=== PATIENT | male | born 1975 | race Hispanic/Latino ===

== ENCOUNTER 2017-03-27 16:49 | Emergency (ER) | payer MEDICAID ==
[~2017-03-27] VITALS: Ht 175.3 cm; Wt 118.8 kg
== END 2017-03-27 19:10 | disposition home or self-care (01) ==
LOC: ED 16:49
DX: L03.116 Cellulitis of left lower limb (principal); I10 Essential (primary) hypertension
CPT/HCPCS: 80053; 85025; 96365; 99283; J3490

== ENCOUNTER 2017-07-12 13:41 | Emergency (ER) | payer MEDICAID ==
[~2017-07-12] VITALS: Ht 175.3 cm; Wt 120.7 kg
[2017-07-12] MEDS ORDERED: METHYLPREDNISOLO4 M1 PO (14:01)
[2017-07-12] MEDS ORDERED: AUGMENTIN 875-1 EACH PO (14:01)
[2017-07-12] MEDS ORDERED: TESSALON PERLE100 MG PO (14:01)
== END 2017-07-12 14:15 | disposition home or self-care (01) ==
LOC: ED 13:41
DX: J40 Bronchitis, not specified as acute or chronic (principal); I10 Essential (primary) hypertension; Z87.891 Personal history of nicotine dependence
CPT/HCPCS: 99283

== ENCOUNTER 2017-08-18 15:27 | Emergency (ER) | payer OTHER, MEDICAID ==
[~2017-08-18] VITALS: Ht 175.3 cm; Wt 121.6 kg
[~2017-08-18 15:27] MED LIST: AUGMENTIN 875-1 EACH PO; METHYLPREDNISOLO4 M1 PO; TESSALON PERLE100 MG PO
[2017-08-18] MEDS ORDERED: ZITHROMAX250 MG PO (17:32)
[2017-08-18] MEDS ORDERED: AMBIEN5 MG PO (17:32)
--- NOTE | 2017-08-18 18:05 | EKG ---
[facility] [address] [place] [address] Signed Sinus tachycardia Otherwise normal ECG No previous ECGs available Confirmed by SAIMA WHITTAKER MD ([id number]) on 08/18/2017 6:05:37 PM Electronically Signed By: SAIMA WHITTAKER MD 08/18/17 1805 PATIENT NAME: KIRSTIN DAMON Electrocardiogram DATE OF : 77 PHYSICIAN: SAIMA WHITTAKER MD REPORT #: [id number] REPORT IS CONFIDENTIAL AND NOT TO BE RELEASED WITHOUT AUTHORIZATION
== END 2017-08-18 17:51 | disposition home or self-care (01) ==
LOC: ED 15:27
DX: J06.9 Acute upper respiratory infection, unspecified (principal); R07.9 Chest pain, unspecified; G47.00 Insomnia, unspecified; I10 Essential (primary) hypertension; Z87.891 Personal history of nicotine dependence; Z79.899 Other long term (current) drug therapy
CPT/HCPCS: 71010; 80053; 83605; 84484; 85025; 93005; 93010; 96360; 99284; J7030

== ENCOUNTER 2019-09-08 14:41 | Emergency (ER) | payer OTHER ==
[~2019-09-08] VITALS: Ht 175.3 cm; Wt 121.6 kg
[~2019-09-08 14:41] MED LIST changes: +AMBIEN5 MG PO; +ZITHROMAX250 MG PO
--- OUTSIDE RECORDS SUMMARY | 2019-09-08 14:44 | XMS ---
PreManage Notification: KIRSTIN DAMON Security Swedish Masseuse Events No recent Security Events currently on file CRITERIA MET - Group Notification CARE PROVIDERS There are no care providers on record at this time. Jorge has no Care Guidelines for this patient. Dom VISIT COUNT (12 MO.) 2 KEVIN Alejandra TOTAL 2 NOTE: Visits indicate total known visits. ED/C VISIT TRACKING (12 MO.) 09/08/2019 14:42 [facility] [place] TYPE: Emergency COMPLAINT: - L EYE IRRITATION 03/27/2019 21:[address] [facility] [place] TYPE: Emergency COMPLAINT: - SKIN ISSUES DIAGNOSES: - Essential (primary) hypertension - Striking against or struck by other objects, init encntr - Dizziness and giddiness - Contusion of right elbow, initial encounter INPATIENT VISIT TRACKING (12 MO.) No inpatient visits to display in this time frame [id number]
[2019-09-08] MEDS ORDERED: ERYTHROMYCIN1 GM OP (15:53)
== END 2019-09-08 16:00 | disposition home or self-care (01) ==
LOC: ED 14:41
DX: H00.15 Chalazion left lower eyelid (principal); G47.00 Insomnia, unspecified; I10 Essential (primary) hypertension
CPT/HCPCS: 99283

== ENCOUNTER 2020-08-11 11:52 | Emergency (ER) | payer OTHER ==
[~2020-08-11] VITALS: Ht 175.3 cm; Wt 111.0 kg
[~2020-08-11 11:52] MED LIST changes: +ERYTHROMYCIN1 GM OP
--- OUTSIDE RECORDS SUMMARY | 2020-08-11 11:54 | XMS ---
PreManage Notification: KIRSTIN DAMON Security Director Of Collections And Archives Events No recent Security Events currently on file CRITERIA MET - Group Notification CARE PROVIDERS There are no care providers on record at this time. Jorge has no Care Guidelines for this patient. Dom VISIT COUNT (12 MO.) 2 KEVIN Alejandra TOTAL 2 NOTE: Visits indicate total known visits. ED/UCC VISIT TRACKING (12 MO.) 08/11/2020 11:53 [facility] [place] TYPE: Emergency COMPLAINT: - RT HAND INJURY 09/08/2019 14:42 [facility] [place] TYPE: Emergency COMPLAINT: - L EYE IRRITATION DIAGNOSES: - Essential (primary) hypertension - Insomnia, unspecified - Chalazion left lower eyelid INPATIENT VISIT TRACKING (12 MO.) No inpatient visits to display in this time frame [email or web address]
== END 2020-08-11 14:08 | disposition home or self-care (01) ==
LOC: ED 11:52
DX: S62.336A Displaced fracture of neck of fifth metacarpal bone, right hand, initial encounter for closed fracture (principal); W22.8XXA Striking against or struck by other objects, initial encounter; Z88.2 Allergy status to sulfonamides; Z88.5 Allergy status to narcotic agent
CPT/HCPCS: 29125; 73130; 99283-25

== ENCOUNTER 2020-12-20 10:26 | Emergency (ER) | payer OTHER ==
[~2020-12-20] VITALS: Ht 175.3 cm; Wt 114.6 kg
--- OUTSIDE RECORDS SUMMARY | 2020-12-20 10:28 | XMS ---
PreManage Notification: KIRSTIN DAMON Security Insurance Claim Approver Events No recent Security Events currently on file CRITERIA MET - Group Notification CARE PROVIDERS There are no care providers on record at this time. Jorge has no Care Guidelines for this patient. Dom VISIT COUNT (12 MO.) 2 KEVIN Alejandra TOTAL 2 NOTE: Visits indicate total known visits. ED/C VISIT TRACKING (12 MO.) 12/20/2020 10:26 [facility] [place] TYPE: Emergency COMPLAINT: - SHOULDER PAIN 08/11/2020 11:53 [facility] [place] TYPE: Emergency COMPLAINT: - RT HAND INJURY DIAGNOSES: - Allergy status to narcotic agent - Striking against or struck by other objects, initial encounter - Allergy status to sulfonamides - Displaced fracture of neck of fifth metacarpal bone, right hand, initial encounter for closed fracture - Pain in right hand INPATIENT VISIT TRACKING (12 MO.) No inpatient visits to display in this time frame [email or web address]
[2020-12-20] MEDS ORDERED: NAPROSYN500 MG PO (11:59)
== END 2020-12-20 12:06 | disposition home or self-care (01) ==
LOC: ED 10:26
DX: S46.911A Strain of unspecified muscle, fascia and tendon at shoulder and upper arm level, right arm, initial encounter (principal); W22.8XXA Striking against or struck by other objects, initial encounter; Z88.2 Allergy status to sulfonamides; Z88.5 Allergy status to narcotic agent
CPT/HCPCS: 73030; 99283-25

== ENCOUNTER 2021-05-06 23:13 | Emergency (ER) | payer OTHER ==
[~2021-05-06] VITALS: Ht 175.3 cm; Wt 111.0 kg
[~2021-05-06 23:13] MED LIST changes: +NAPROSYN500 MG PO
--- OUTSIDE RECORDS SUMMARY | 2021-05-06 23:22 | XMS ---
PreManage Notification: KIRSTIN DAMON Security Quill Winder Events No recent Security Events currently on file CRITERIA MET - Group Notification CARE PROVIDERS There are no care providers on record at this time. Jorge has no Care Guidelines for this patient. Dom VISIT COUNT (12 MO.) 3 KEVIN Alejandra TOTAL 3 NOTE: Visits indicate total known visits. ED/C VISIT TRACKING (12 MO.) 05/06/2021 23:14 [facility] [place] TYPE: Emergency COMPLAINT: - FEET PAIN 12/20/2020 10:26 [facility] [place] TYPE: Emergency COMPLAINT: - SHOULDER PAIN DIAGNOSES: - Strain of unspecified muscle, fascia and tendon at shoulder and upper arm level, right arm, initial encounter - Striking against or struck by other objects, initial encounter - Pain in right shoulder - Allergy status to sulfonamides - Allergy status to narcotic agent 08/11/2020 11:53 [facility] [place] TYPE: Emergency COMPLAINT: - RT HAND INJURY DIAGNOSES: - Allergy status to sulfonamides - Allergy status to narcotic agent - Allergy status to narcotic agent - Striking against or struck by other objects, initial encounter - Allergy status to sulfonamides - Displaced fracture of neck of fifth metacarpal bone, right hand, initial encounter for closed fracture - Pain in right hand INPATIENT VISIT TRACKING (12 MO.) No inpatient visits to display in this time frame [id number]
[2021-05-06] MEDS ORDERED: LISINOPRIL10 MG PO (23:45)
[2021-05-06] MEDS ORDERED: FLUOXETINE HCL10 MG PO (23:45)
[2021-05-06] MEDS ORDERED: VITAMIN D21250 MCG PO (23:45)
== END 2021-05-07 04:01 | disposition home or self-care (01) ==
LOC: ED 23:13
DX: S93.401A Sprain of unspecified ligament of right ankle, initial encounter (principal); S90.415A Abrasion, left lesser toe(s), initial encounter; X50.9XXA Other and unspecified overexertion or strenuous movements or postures, initial encounter; Z88.2 Allergy status to sulfonamides; Z88.5 Allergy status to narcotic agent; Z79.899 Other long term (current) drug therapy
CPT/HCPCS: 73610; 99283-25

== ENCOUNTER 2021-07-31 04:57 | Emergency (ER) | payer OTHER ==
[~2021-07-31] VITALS: Ht 175.3 cm; Wt 108.4 kg
[~2021-07-31 04:57] MED LIST changes: +FLUOXETINE HCL10 MG PO; +LISINOPRIL10 MG PO; +VITAMIN D21250 MCG PO
--- OUTSIDE RECORDS SUMMARY | 2021-07-31 05:00 | XMS ---
PreManage Notification: KIRSTIN DAMON Security Rn Rehabilitation Events No recent Security Events currently on file CRITERIA MET - Group Notification CARE PROVIDERS TOMMY SPANN Physician Flight Superintendent 05/07/2021-Current PHONE: [phone] Jorge has no Care Guidelines for this patient. EGordy VISIT COUNT (12 MO.) 4 KEVIN Alejandra TOTAL 4 NOTE: Visits indicate total known visits. ED/UCC VISIT TRACKING (12 MO.) 07/31/2021 04:57 [facility] [place] TYPE: Emergency COMPLAINT: - LACERATION RT FOOT 05/06/2021 23:14 [facility] [place] TYPE: Emergency COMPLAINT: - FEET PAIN DIAGNOSES: - Sprain of unspecified ligament of right ankle, initial encounter - Allergy status to sulfonamides - Allergy status to narcotic agent - Other group home (current) drug therapy - Other and unspecified overexertion or strenuous movements or postures, initial encounter - Abrasion, left lesser toe(s), initial encounter 12/20/2020 10:26 [facility] [place] TYPE: Emergency COMPLAINT: - SHOULDER PAIN DIAGNOSES: - Strain of unspecified muscle, fascia and tendon at shoulder and upper arm level, right arm, initial encounter - Striking against or struck by other objects, initial encounter - Pain in right shoulder - Allergy status to sulfonamides - Allergy status to narcotic agent 08/11/2020 11:[address] [facility] [place] TYPE: Emergency COMPLAINT: - RT HAND [...] visits to display in this time frame [email or web address]
== END 2021-07-31 05:44 | disposition home or self-care (01) ==
LOC: ED 04:57
DX: S91.311A Laceration without foreign body, right foot, initial encounter (principal); Z88.2 Allergy status to sulfonamides; Z79.899 Other long term (current) drug therapy; W45.8XXA Other foreign body or object entering through skin, initial encounter; Z23 Encounter for immunization
CPT/HCPCS: 90471; 90715; 99282-25

== ENCOUNTER 2021-12-17 08:51 | Emergency (ER) | payer OTHER ==
[~2021-12-17] VITALS: Ht 175.3 cm; Wt 108.7 kg
--- OUTSIDE RECORDS SUMMARY | 2021-12-17 09:00 | XMS ---
PreManage Notification: KIRSTIN DAMON Security It Infrastructure Project Manager Events No recent Security Events currently on file CRITERIA MET - Group Notification CARE PROVIDERS TOMMY SPANN Physician Etcher Apprentice Photoengraving 05/07/2021-Current PHONE: [phone] Jorge has no Care Guidelines for this patient. EGordy VISIT COUNT (12 MO.) 4 KEVIN Alejandra TOTAL 4 NOTE: Visits indicate total known visits. ED/UCC VISIT TRACKING (12 MO.) 12/17/2021 08:53 [facility] [place] TYPE: Emergency COMPLAINT: - DIARRHEA 07/31/2021 04:57 [facility] [place] TYPE: Emergency COMPLAINT: - LACERATION RT FOOT DIAGNOSES: - Laceration without foreign body, right foot, initial encounter - Allergy status to sulfonamides - Encounter for immunization - Other foreign body or object entering through skin, initial encounter - Other termite control technician (current) drug therapy 05/06/2021 23:14 [facility] [place] TYPE: Emergency COMPLAINT: - FEET PAIN DIAGNOSES: - Sprain of unspecified ligament of right ankle, initial encounter - Allergy status to sulfonamides - Allergy status to narcotic agent - Other termite control technician (current) drug therapy - Other and unspecified overexertion or strenuous movements or postures, initial encounter - Abrasion, left lesser toe(s), initial encounter 12/20/2020 10:[address] [facility] [place] TYPE: Emergency COMPLAINT: - SHOULDER PAIN DIAGNOSES: - Strain of unspecified muscle, fascia and tendon at shoulder and upper arm level, right arm, initial encounter - Striking against or struck by other objects, initial encounter - Pain in right shoulder - Allergy status to sulfonamides - Allergy status to narcotic agent INPATIENT VISIT TRACKING (12 MO.) No inpatient visits to display in this time frame [id number]
== END 2021-12-17 18:02 | disposition home or self-care (01) ==
LOC: ED 08:51
DX: R19.7 Diarrhea, unspecified (principal); R10.31 Right lower quadrant pain; G47.00 Insomnia, unspecified; Z88.2 Allergy status to sulfonamides; Z88.5 Allergy status to narcotic agent
CPT/HCPCS: 36415; 74177; 80053; 83690; 85025; 99284-25; J7030; Q9967

== ENCOUNTER 2022-07-26 01:45 | Emergency (ER) | payer OTHER ==
[~2022-07-26] VITALS: Ht 175.3 cm; Wt 116.0 kg
--- OUTSIDE RECORDS SUMMARY | 2022-07-26 01:51 | XMS ---
PreManage Notification: KIRSTIN DAMON Security Copper Etcher Events No recent Security Events currently on file CRITERIA MET - Group Notification CARE PROVIDERS TOMMY SPANN Physician Industrial Ecology Technician 05/07/2021-Current PHONE: Unknown Jorge has no Care Guidelines for this patient. Dom VISIT COUNT (12 MO.) 3 KEVIN Alejandra TOTAL 3 NOTE: Visits indicate total known visits. ED/UCC VISIT TRACKING (12 MO.) 07/26/2022 01:48 [facility] [place] TYPE: Emergency COMPLAINT: - HAD COVID SYMPTOMS 2 WEEKS AGO TESTED NEG 12/17/2021 08:53 [facility] [place] TYPE: Emergency COMPLAINT: - DIARRHEA DIAGNOSES: - Allergy status to narcotic agent - Right lower quadrant pain - Diarrhea, unspecified - Insomnia, unspecified - Allergy status to sulfonamides 07/31/2021 04:57 [facility] [place] TYPE: Emergency COMPLAINT: - LACERATION RT FOOT DIAGNOSES: - Allergy status to sulfonamides - Other senior living (current) drug therapy - Encounter for immunization - Laceration without foreign body, right foot, initial encounter - Other foreign body or object entering through skin, initial encounter INPATIENT VISIT TRACKING (12 MO.) No inpatient visits to display in this time frame [id number]
== END 2022-07-26 02:28 | disposition home or self-care (01) ==
LOC: ED 01:45
DX: R09.81 Nasal congestion (principal); Z88.2 Allergy status to sulfonamides; Z88.5 Allergy status to narcotic agent
CPT/HCPCS: 99283

== ENCOUNTER 2022-12-31 06:18 | Inpatient (IN) | payer OTHER ==
[2022-12-31] VITALS (39 sets, daily range): BP systolic 111–169; BP diastolic 57–78
[~2022-12-31] VITALS: Ht 177.8 cm; Wt 116.9 kg
--- OUTSIDE RECORDS SUMMARY | 2022-12-31 06:23 | XMS ---
PreManage Notification: KIRSTIN DAMON Security Distillation Operator Helper Events No recent Security Events currently on file CRITERIA MET - Group Notification CARE PROVIDERS -, Rodney- Dentist: Caption Writer [facility] PHONE: [phone] TOMMY SPANN Physician Corporate Risk Analyst 05/07/2021-Current PHONE: Unknown Jorge has no Care Guidelines for this patient. Dom VISIT COUNT (12 MO.) 2 KEVIN Alejandra TOTAL 2 NOTE: Visits indicate total known visits. ED/UCC VISIT TRACKING (12 MO.) 12/31/2022 06:20 [facility] [place] TYPE: Emergency COMPLAINT: - L ANKLE PAIN 07/26/2022 01:48 [facility] [place] TYPE: Emergency COMPLAINT: - HAD COVID SYMPTOMS 2 WEEKS AGO TESTED NEG DIAGNOSES: - Nasal congestion - Allergy status to narcotic agent - Allergy status to sulfonamides - Cough, unspecified INPATIENT VISIT TRACKING (12 MO.) No inpatient visits to display in this time frame [id number]
--- NOTE | 2022-12-31 07:26 | EKG ---
[facility] [address] [place] [address] Signed Atrial fibrillation with rapid ventricular response Marked ST abnormality, possible inferior subendocardial injury Abnormal ECG When compared with ECG of 18-AUG-2017 16:02, Atrial fibrillation has replaced Sinus rhythm Vent. rate has increased BY [address] now depressed in Inferior leads ST now depressed in Anterolateral leads T wave inversion now evident in Anterolateral leads Confirmed by MARIAH VAZQUEZ MD ([id number]) on 12/31/2022 7:25:57 AM Electronically Signed By: MARIAH VAZQUEZ MD 12/31/22 0726 PATIENT NAME: KIRSTIN DAMON Electrocardiogram DATE OF : 77 PHYSICIAN: MARIAH VAZQUEZ MD REPORT #: [id number] REPORT IS CONFIDENTIAL AND NOT TO BE RELEASED WITHOUT AUTHORIZATION
[2023-01-01] VITALS (18 sets, daily range): BP systolic 112–147; BP diastolic 44–98
--- NOTE | 2023-01-02 07:34 | EKG ---
[facility] [address] [address] [place] [address] Signed Normal sinus rhythm Normal ECG When compared with ECG of 31-DEC-2022 06:52, Sinus rhythm has replaced Atrial fibrillation Vent. rate has decreased BY [address] no longer depressed in Inferior leads ST elevation has replaced ST depression in Anterior leads Nonspecific T wave abnormality has replaced inverted T waves in Inferior leads T wave inversion no longer evident in Anterolateral leads Confirmed by MARIAH VAZQUEZ MD ([id number]) on 01/02/2023 7:33:51 AM Electronically Signed By: MARIAH VAZQUEZ MD 01/02/23 0734 PATIENT NAME: KIRSTIN DAMON Electrocardiogram DATE OF : 77 PHYSICIAN: MARIAH VAZQUEZ MD REPORT #: [id number] REPORT IS CONFIDENTIAL AND NOT TO BE RELEASED WITHOUT AUTHORIZATION
[2023-01-02 07:59] VITALS: BP 131/65
[2023-01-02] MEDS ORDERED: ELIQUIS5 MG PO (12:02)
[2023-01-02] MEDS ORDERED: METOPROLOL SUCC25 MG PO (12:02)
[2023-01-02] MEDS ORDERED: PANTOPRAZOLE SO40 MG PO (12:02)
[2023-01-02] MEDS ORDERED: DOXYCYCLINE HY100 MG PO (12:03)
== END 2023-01-02 15:55 | disposition home or self-care (01) | DRG 872 ==
LOC: ED 06:18 → CCU 08:43 → MS 01-01 10:25
PROVIDERS: ADMIT Internal Medicine; ATTEND Internal Medicine
DX: A41.9 Sepsis, unspecified organism (principal); L03.116 Cellulitis of left lower limb; Z20.822 Contact with and (suspected) exposure to COVID-19; I48.0 Paroxysmal atrial fibrillation; E87.6 Hypokalemia; R19.7 Diarrhea, unspecified; S93.492A Sprain of other ligament of left ankle, initial encounter; F90.9 Attention-deficit hyperactivity disorder, unspecified type; F32.A Depression, unspecified; G47.00 Insomnia, unspecified; F41.9 Anxiety disorder, unspecified; R48.0 Dyslexia and alexia; L80 Vitiligo; Z88.2 Allergy status to sulfonamides; Z88.6 Allergy status to analgesic agent; W18.39XA Other fall on same level, initial encounter; Y92.009 Unspecified place in unspecified non-institutional (private) residence as the place of occurrence of the external cause
CPT/HCPCS: 36415; 71045; 73610; 74177; 80048; 80053; 81001; 83605; 83735; 84484; 85025; 85610; 87502; 93005; 93010; 96365; 96375; 96376; 97162; 97165; 97530; 99284-25; A9270; C9113; J0878; J1885; J2405; J3370; J3480; J3490; J7030; J7060; Q9967; U0003